=== PATIENT | male | born 1970 | race Caucasian/White ===

== ENCOUNTER 2017-05-09 17:10 | Emergency (ER) | payer OTHER ==
--- NOTE | 2017-05-09 18:41 | EDM.PDOC ---
ED HPI GENERAL MEDICAL PROBLEM - General Chief Complaint: Chest Pain Stated Complaint: POSS BROKEN RIBS Time Seen by Provider: 05/09/17 18:19 Source of Information: Reports: Patient History Limitations: Reports: No Limitations - History of Present Illness INITIAL COMMENTS - FREE TEXT/NARRATIVE: Patient is a 47-year-old male was presents to the ED complaining of right anterior/lateral chest discomfort. Patient states last night while unloading a semi-trailer a four-inch hose coupling hit him in the right side accidentally. Pain is localized. Throughout the course of the last 24 hours the discomfort has worsened. Pain is worsened with palpation, movement, taking a deep breath. Denies hemoptysis, shortness of breath, abdominal pain, nausea/vomiting, or any additional complaints. Right Chest Pain Score (Numeric/FACES): 5 - Related Data Allergies Allergy/AdvReac Type Severity Reaction Status Date / Time No Known Allergies Allergy Verified 05/09/17 17:24 Home Meds: Home Meds traMADol [Ultram] 50 mg PO Q6H PRN #8 tablet 05/09/17 [Rx] Past Medical History Neurological History: Reports: Brain Injury, Head Trauma Social & Family History - Tobacco Use Smoking Status *Q: Never Smoker - Caffeine Use Caffeine Use: Reports: Coffee - Recreational Drug Use Recreational Drug Use: No ED ROS GENERAL - Review of Systems Review Of Systems: ROS reveals no pertinent complaints other than HPI. ED EXAM, GENERAL - Physical Exam Exam: See Below Exam Limited By: No Limitations General Appearance: Alert, WD/WN, No Apparent Distress Ears: Hearing Grossly Normal Nose: Normal Inspection Throat/Mouth: Normal Voice, No Airway Compromise Neck: Normal Inspection, Supple Respiratory/Chest: No Respiratory Distress, Lungs Clear, Normal Breath Sounds, No Accessory Muscle Use, Other (Tenderness noted to the right anterior lateral chest just below the nipple line with palpation. Slight bony abnormality noted with palpation. No swelling, ecchymosis, or wounds present.) Cardiovascular: Normal Peripheral Pulses, Regular Rate, Rhythm, No Murmur Peripheral Pulses: 2+: Radial (R) GI/Abdominal: Normal Bowel Sounds, Soft, Non-Tender, No Organomegaly, No Distention Neurological: Alert, Oriented, CN II-XII Intact, Normal Cognition Psychiatric: Normal Affect, Normal Mood Skin Exam: Warm, Dry, Intact, Normal Color, No Rash Course - Vital Signs Last Recorded V/S: Last Vital Signs Temp 97.5 F 05/09/17 17:21 Pulse 76 05/09/17 17:21 Resp 16 05/09/17 17:21 BP 128/95 H 05/09/17 17:21 Pulse Ox 98 05/09/17 17:21 - Orders/Labs/Meds Orders: Active Orders 24 hr Category Date Time Status Chest 1V Frontal [CR] Stat Exams 05/09/17 18:25 Taken - Re-Assessments/Exams Free Text/Narrative Re-Assessment/Exam: Will obtain x-ray of the chest 1 view to evaluate for fracture ribs. X-ray of the chest reviewed with no acute abnormalities. Final interpretation pending. Reviewed with Dr. Yeung. Departure - Departure Time of Disposition: 20:40 Disposition: Home, Self-Care 01 Condition: Good Clinical Impression: Contusion, chest wall Qualifiers: Encounter type: initial encounter Laterality: right Qualified Code(s): S20.211A - Contusion of right front wall of thorax, initial encounter Prescriptions: traMADol [Ultram] 50 mg PO Q6H PRN #8 tablet PRN Reason: Pain (Severe 7-10) Instructions: Contusion, [id number] Referrals: PCP,Not In Area [Primary Care Provider] - Forms: ED Department Discharge, ED Return to Work/School Form Additional Instructions: As discussed x-ray of the chest did not reveal any acute bony abnormalities. Etiology chest contusion thus symptomatically her is appropriate including: Ice to affected area as needed, Tylenol and ibuprofen in alternating fashion for discomfort, refrain from any activities that cause worsening pain, for pain not managed with the above therapies take tramadol 1 tab every 6 hours as needed[address] Do not drive while taking the tramadol. Follow-up with PCP in the next week for reevaluation if pain persists. Return to the ED for any new or worsening symptoms. - My Orders Last 24 Hours: My Active Orders 05/09/17 18:25 Chest 1V Frontal [CR] Stat - Assessment/Plan Last 24 Hours: My Active Orders 05/09/17 18:25 Chest 1V Frontal [CR] Stat
--- NOTE | 2017-05-10 08:15 | CR ---
Chest: Portable view of the chest was obtained. Comparison: No prior study. Heart size and mediastinum are normal. Lungs are clear. Bony structures are grossly intact. Incidental note of old right clavicle fracture. Impression: 1. Nothing acute is appreciated on portable chest x-ray Diagnostic code #2
== END 2017-05-09 21:30 | disposition home or self-care (01) ==
LOC: JD.ED 17:10
DX: S20.211A Contusion of right front wall of thorax, initial encounter (principal); W22.8XXA Striking against or struck by other objects, initial encounter
CPT/HCPCS: 71010; 71010-26; 99283